=== PATIENT | male | born 1970 | race Caucasian/White ===

== ENCOUNTER 2020-01-19 12:22 | Outpatient (REF) | payer OTHER, SELFPAY ==
--- NOTE | 2020-01-19 12:44 | XR_ITS ---
EXAMINATION: XR PELVIS CLINICAL INFORMATION: Pain, assess for degenerative changes. COMPARISON: Lumbar radiographs 01/19/2020, CT abdomen and pelvis 07/21/2019 TECHNIQUE: AP view of the pelvis. FINDINGS: There is mild degenerative change may left SI joint with small anterior bridging osteophyte better appreciated on CT. There is no diastases or erosive changes SI joints. The pubis is unremarkable. Bony pelvis shows no fracture or destructive process. There is borderline narrowing left superior medial hip joint. No erosive changes or chondrocalcinosis bilateral hips. XR/XR pelvis 1-2V IMPRESSION: 1. Mild degenerative change mid left SI joint with small anterior bridging osteophyte. 2. Borderline narrowing left superior medial hip joint. No erosive change.
--- NOTE | 2020-01-19 12:44 | XR_ITS ---
EXAMINATION: XR LUMBOSACRAL SPINE CLINICAL INFORMATION: Low back pain COMPARISON: CT abdomen and pelvis 07/21/2019 TECHNIQUE: Three views of the lumbosacral spine. FINDINGS: There is normal lumbar segmentation with 5 nonrib-bearing lumbar vertebrae of normal height and normal lumbar lordosis. There is borderline spina bifida occulta S1. There is no vertebral compression, spondylolisthesis, destructive process. Minor vertebral spurring present at L2-L3. Borderline disc narrowing L4-L5. No erosive changes. There is mild degenerative change mid left SI joint with anterior bridging osteophyte better appreciated on CT. XR/XR lumbar spine 2-3V IMPRESSION: 1. Borderline disc narrowing L4-L5. Mild vertebral spurring L2-L3. 2. Mild degenerative change mid left SI joint.
[2020-01-19 13:30] LABS: MANUAL DIFF FLAG NO
[2020-01-19 13:34] LABS: Basophils Absolute Auto 0.1 X10*3/uL (0.0-0.2); Basophils Percent Auto 0.6 % (0-2); Eosinophils Absolute Auto 0.1 X10*3/uL (0.0-0.4); Eosinophils Percent Auto 1.2 % (0-4); Hematocrit 44.9 % (42-52); Hemoglobin 15.3 g/dl (14.0-18.0); Imm Gran Abs Auto 0.04 X10*3/uL (0.00-0.03); Imm Gran Pct Auto 0.4 % (0.0-0.4); Lymphocytes Absolute Auto 2.9 X10*3/uL (1.2-4.9); Lymphocytes Percent Auto 27.5 % (20-40); Mean Corpuscular HGB Conc 34.1 g/dl (31.0-36.0); Mean Corpuscular Hemoglobin 32.1 pg (27.0-33.0); Mean Corpuscular Volume 94.1 fL (80-98); Mean Platelet Volume 11.8 fL (9.4-12.4); Monocytes Absolute Auto 0.6 X10*3/uL (0.1-1.2); Monocytes Percent Auto 5.6 % (2-11); Neutrophils Absolute Auto 6.9 X10*3/uL (2.0-8.3); Neutrophils Percent Auto 64.7 % (45-73); Platelet Count 228 X10*3/uL (160-400); Red Blood Count 4.77 X10*6/uL (4.60-5.80); Red Cell Distribution Width 12.5 % (11.0-16.0); White Blood Count 10.6 X10*3/uL (4.8-10.8)
[2020-01-19 14:02] LABS: Alanine Aminotransferase 29 U/L (0-40); Albumin Level 4.6 g/dL (3.5-5.0); Alkaline Phosphatase 73 U/L (39-117); Anion Gap 12 (12-20); Aspartate Amino Transferase 28 U/L (5-37); Bilirubin Total 0.7 mg/dL (0.0-1.0); Blood Urea Nitrogen 17 mg/dL (9-16); Calcium 9.1 mg/dL (8.4-10.2); Carbon Dioxide 27 mmol/L (22-29); Chloride 107 mmol/L (96-108); Estimated Glomerular Filt Rate > 60; Glucose Random 80 mg/dL (60-115); Potassium 4.4 mmol/l (3.3-5.1); Sodium 142 mmol/L (135-145); Total Protein 6.9 g/dL (6.5-8.0)
== END 2020-01-19 12:23 | disposition home or self-care (01) ==
LOC: HO.LAB 12:22
PROVIDERS: PCP Internal Medicine; Visit Provider Internal Medicine
DX: M54.5 Low back pain (principal)
CPT/HCPCS: 36415; 72100; 72170; 80053; 85025; 86140

== ENCOUNTER 2020-01-25 16:45 | Outpatient (REF) | payer OTHER, SELFPAY ==
--- NOTE | 2020-01-25 | XR_ITS ---
EXAMINATION: PRE-MRI ORBITS. CLINICAL INFORMATION: History of radiopaque foreign body in orbits COMPARISON: None TECHNIQUE: 3 views. FINDINGS: There is no radiopaque foreign body seen in the orbits. XR/XR pre mri screening IMPRESSION: No radiopaque foreign body seen in the orbits.
--- NOTE | 2020-01-25 16:45 | MR_ITS ---
EXAMINATION: MR LUMBAR SPINE WITHOUT CONTRAST CLINICAL INFORMATION: Low back pain. COMPARISON: X-ray dated 01/19/2020 TECHNIQUE: MRI of the lumbar spine was obtained using routine sequences without contrast. FINDINGS: VERTEBRAL BODIES AND PARASPINAL STRUCTURES: The marrow signal is within normal limits. Small endplate Schmorl's nodes noted at various levels. There are no compression fractures. Minimal retrosubluxation evident at L4-L5. There are moderate degenerative changes of the left SI joint. Mild posterior paraspinal soft tissue edema noted on the right side at L4-L5. CONUS MEDULLARIS AND CAUDA EQUINA: Normal, terminating at the level of L1. No lower cord signal abnormality is seen. The cauda equina nerve roots are normal. SPINAL LEVELS: L1-L2: Well-hydrated normal appearance of the disc without central canal stenosis or foraminal narrowing. L2-L3: Mild disc bulge slightly impressing upon the ventral thecal sac. Otherwise, no central canal stenosis or foraminal narrowing. Small posterior annular fissure noted. L3-L4: Mild left posterolateral disc bulge with mild left foraminal encroachment. No nerve root impingement. No central canal stenosis. L4-L5: Mild degenerative endplate changes and generalized disc bulge present with mild facet arthropathy. No central canal stenosis. Bulging disc and facet spurring encroach upon the right subarticular zone with mild impression upon the right L5 nerve root. [id number] right foraminal narrowing. L5-S1: Mild posterior disc bulge and facet arthropathy without central canal stenosis. Mild foraminal narrowing. MR/MR lumbar spine wo con IMPRESSION: Mild lumbar spondylitic changes without central canal stenosis. Bulging disc and facet spurring at L4-L5 impress upon the right L5 nerve root in the subarticular zone. Mild right-sided posterior paraspinal soft tissue edema at this level, presumably stress-related in etiology.
== END 2020-01-25 16:46 | disposition home or self-care (01) ==
LOC: HO.MRI 16:45
PROVIDERS: Visit Provider Internal Medicine
DX: M51.36 Other intervertebral disc degeneration, lumbar region (principal); M25.78 Osteophyte, vertebrae
CPT/HCPCS: 72148

== ENCOUNTER 2020-07-25 08:48 | Outpatient (REF) | payer OTHER, SELFPAY ==
--- NOTE | ~2020-07-25 | FL_ITS ---
EXAMINATION: FL BARIUM SWALLOW CLINICAL INFORMATION: Dysphagia. COMPARISON: None. TECHNIQUE: Barium swallow examination is performed using fluoroscopic evaluation in addition to multiple fluoroscopic spot views. The patient is imaged both upright and prone and using both thick and thin sulfate along with effervescent granules. Fluoroscopy time: 2.1 minutes DAP: 17.49 Gycm2 Images: 31 FINDINGS: Following oral administration of thick barium and barium-coated turkey, there is normal propagation of bolus from the oral cavity through the pharynx and esophagus and into the stomach without obstruction, narrowing or stricture. On oral administration of thin barium and prone lying position, there is good distention of the entire esophagus without intraluminal defect or extrinsic compression. No gastroesophageal reflux or hiatal hernia seen. FL/FL barium swallow IMPRESSION: Widely patent esophagus with no obstructive etiology or intraluminal filling defect.
== END 2020-07-25 08:49 | disposition home or self-care (01) ==
LOC: HO.XRAY 08:48
PROVIDERS: PCP Internal Medicine; Visit Provider Otolaryngology
DX: R13.10 Dysphagia, unspecified (principal)
CPT/HCPCS: 74220

== ENCOUNTER 2021-01-25 09:32 | Outpatient (REF) | payer OTHER, SELFPAY ==
[2021-01-25 10:14] LABS: MANUAL DIFF FLAG NO
[2021-01-25 10:26] LABS: Basophils Absolute Auto 0.1 X10*3/uL (0.0-0.2); Basophils Percent Auto 0.8 % (0-2); Eosinophils Absolute Auto 0.2 X10*3/uL (0.0-0.4); Eosinophils Percent Auto 2.2 % (0-4); Hemoglobin 15.7 g/dl (14.0-18.0); Imm Gran Abs Auto 0.03 X10*3/uL (0.00-0.03); Imm Gran Pct Auto 0.4 % (0.0-0.4); Lymphocytes Percent Auto 27.6 % (20-40); Mean Corpuscular HGB Conc 34.9 g/dl (31.0-36.0); Mean Corpuscular Hemoglobin 31.9 pg (27.0-33.0); Mean Corpuscular Volume 91.5 fL (80.0-98.0); Mean Platelet Volume 12.5 fL (9.4-12.4); Monocytes Absolute Auto 0.5 X10*3/uL (0.1-1.2); Neutrophils Absolute Auto 4.5 x10*3/uL (2.0-8.3); Platelet Count 209 X10*3/uL (160-400); Red Blood Count 4.92 X10*6/uL (4.60-5.80); Red Cell Distribution Width 12.1 % (11.0-16.0); White Blood Count 7.3 X10*3/uL (4.8-10.8)
[2021-01-25 11:01] LABS: Alanine Aminotransferase 30 U/L (0-40); Albumin Level 4.3 g/dL (3.5-5.0); Alkaline Phosphatase 80 U/L (39-117); Anion Gap 11 (12-20); Aspartate Amino Transferase 22 U/L (5-37); Bilirubin Total 0.7 mg/dL (0.0-1.0); Blood Urea Nitrogen 14 mg/dL (9-16); C Reactive Protein 0.29 mg/dL (< or = 0.50); Calcium 9.1 mg/dL (8.4-10.2); Carbon Dioxide 26 mmol/L (22-29); Chloride 107 mmol/L (96-108); Cholesterol 169 mg/dL; Estimated Glomerular Filt Rate > 60; Glucose Fasting 185 mg/dL (60-99); HDL Cholesterol 27 mg/dL; LDL Cholesterol Calculated 66 mg/dl; Potassium 4.2 mmol/L (3.3-5.1); Sodium 140 mmol/L (135-145); Total Protein 6.7 g/dL (6.5-8.0); Triglycerides 383 mg/dL
[2021-01-25 11:17] LABS: Prostate Specific Antigen Scr 0.26 ng/mL (<0.05-4.0)
[2021-01-25 14:15] LABS: Appearance Urine CLEAR; Color Urine YELLOW; Glucose Urine UA 100 MG/DL (NEG); Leukocyte Esterase Urine NEG (NEG); Nitrite Urine NEG (NEG); PH 5.5 (5.0-8.0); Specific Gravity - Urine >= 1.030 (1.005-1.025); Urine Blood NEG (NEG); Urine Ketones NEG (NEG); Urine Protein NEG (NEG-TRACE)
== END 2021-01-25 09:33 | disposition home or self-care (01) ==
LOC: HO.10HDL 09:32
PROVIDERS: Visit Provider Internal Medicine
DX: Z00.00 Encounter for general adult medical examination without abnormal findings (principal); R10.9 Unspecified abdominal pain; Z12.5 Encounter for screening for malignant neoplasm of prostate
CPT/HCPCS: 36415; 80053; 80061; 81003; 84153; 85025; 86140

== ENCOUNTER 2021-01-25 09:53 | Outpatient (REF) | payer OTHER, SELFPAY ==
--- NOTE | ~2021-01-25 | US_ITS ---
EXAMINATION: US ABDOMEN COMPLETE CLINICAL INFORMATION: Right upper quadrant pain. Rule out gallbladder disease. COMPARISON: None. TECHNIQUE: Real-time imaging of the abdominal viscera. FINDINGS: PANCREAS: The head and the body the pancreas is homogeneous in echotexture. The tail of the pancreas is obscured by overlying gas. ABDOMINAL AORTA: The proximal, mid, and distal segments are normal in caliber. INFERIOR VENA CAVA: Visualized portions are normal. LIVER: The liver is increased in echogenicity. The liver is normal in size. The liver contour is normal. Parenchymal echogenicity is normal. No focal hepatic lesion. There is no intrahepatic biliary duct dilatation seen. GALLBLADDER: The gallbladder wall thickness is 0.14 cm. The gallbladder is physiologically distended without evidence of stones, sludge, polyps, wall thickening or pericholecystic fluid. COMMON BILE DUCT: Normal in caliber measuring 0.43. cm in diameter. RIGHT KIDNEY: Normal. No hydronephrosis. No renal calculi or focal parenchymal lesions. The kidney measures 11.3 cm in maximum dimension. LEFT KIDNEY: Normal. No hydronephrosis. No renal calculi or focal parenchymal lesions. The kidney measures 11.5 cm in maximum dimension. SPLEEN: Normal. The spleen measures 12.6 cm in maximum dimension. FREE FLUID: None. US/US abdomen complete IMPRESSION: Diffuse hepatic steatosis without focal lesion. The rest of the abdominal ultrasound is unremarkable.
== END 2021-01-25 09:54 | disposition home or self-care (01) ==
LOC: HO.US 09:53
PROVIDERS: PCP Internal Medicine; Visit Provider Internal Medicine
DX: R10.11 Right upper quadrant pain (principal); K76.0 Fatty (change of) liver, not elsewhere classified
CPT/HCPCS: 76700

== ENCOUNTER 2021-02-06 06:30 | Outpatient (REF) | payer OTHER, SELFPAY ==
--- NOTE | ~2021-02-06 | CT_ITS ---
EXAMINATION: CT ABDOMEN AND PELVIS WITHOUT CONTRAST CLINICAL INFORMATION: Abdominal pain COMPARISON: Previous CT of the abdomen and pelvis July 2019 and abdomen ultrasound 01/25/2021 TECHNIQUE: Multidetector volumetric imaging was performed from the superior aspect of the liver through the pubic symphysis. Sagittal and coronal reformatted images were obtained on the technologist's workstation. This CT examination was performed using dose optimization techniques as appropriate, variously including the following: *Automated exposure control *Adjustment of mA and/or kV according to patient size (this includes techniques or standardized protocols for targeted exams where dose is matched to indication/reason for exam; i.e. extremities or head) *Use of iterative reconstruction technique DLP: 497 mGy-cm FINDINGS: LUNG BASES: The visualized lung bases are unremarkable. LIVER, GALLBLADDER, AND BILIARY TREE: The liver is normal in size, shape, and attenuation. No focal hepatic lesion or biliary ductal dilatation is present. The gallbladder is unremarkable with no evidence of radiopaque gallstones, gallbladder wall thickening, or obvious pericholecystic inflammatory changes. PANCREAS: Unremarkable. SPLEEN: Unremarkable. ADRENAL GLANDS: Unremarkable. KIDNEYS AND URETERS: The kidneys are normal in size, shape, and attenuation. No hydronephrosis, hydroureter, or calculi seen. No perinephric stranding. BLADDER: Unremarkable. GASTROINTESTINAL TRACT: The small and large bowel are unremarkable. The appendix is unremarkable. ABDOMINAL WALL: No significant hernia is appreciated. LYMPH NODES: Normal. VASCULAR: Unremarkable. PELVIC VISCERA: Unremarkable. OSSEOUS STRUCTURES: Unremarkable. CT/CT abdomen pelvis wo con IMPRESSION: Unremarkable exam. Fleischner guidelines were followed.
[2021-02-06] MEDS: Barium Sulfate Oral (Mocha) 450 ML ORAL.SUSP 900 ML PO (09:26)
== END 2021-02-06 06:31 | disposition home or self-care (01) ==
LOC: HO.CT 06:30
PROVIDERS: Visit Provider Internal Medicine
DX: R10.84 Generalized abdominal pain (principal)
CPT/HCPCS: 74176

== ENCOUNTER 2021-02-09 10:04 | Outpatient (REF) | payer OTHER, SELFPAY ==
[2021-02-09 14:26] LABS: Estimated Average Glucose 163 mg/dL; Hemoglobin A1c % 7.3 %
[2021-02-09 14:43] LABS: Anion Gap 12 (12-20); Blood Urea Nitrogen 19 mg/dL (9-16); Calcium 9.8 mg/dL (8.4-10.2); Carbon Dioxide 25 mmol/L (22-29); Chloride 107 mmol/L (96-108); Estimated Glomerular Filt Rate > 60; Glucose Fasting 108 mg/dL (60-99); Potassium 4.3 mmol/L (3.3-5.1); Sodium 140 mmol/L (135-145)
== END 2021-02-09 10:05 | disposition home or self-care (01) ==
LOC: HO.10HDL 10:04
PROVIDERS: Visit Provider Internal Medicine
DX: R73.9 Hyperglycemia, unspecified (principal)
CPT/HCPCS: 36415; 80048; 83036

== ENCOUNTER → 2021-03-08 12:52 | Outpatient (BNVA) | payer OTHER, SELFPAY | PROVIDERS: PCP Internal Medicine; Referring Provider Internal Medicine; Visit Provider Surgery ==

== ENCOUNTER 2021-04-28 07:34 | Day surgery (SDC) | payer OTHER, SELFPAY ==
[2021-04-19 11:55] VITALS: BMI 29.2
[2021-04-19 12:10] VITALS: BMI 29.2
--- NOTE | 2021-04-27 08:17 | HO.ANESPROP2 ---
HPI - Anesthesia Eval Consult details Narrative: 50yo M for Colonoscopy, Poss Polypectomy PMFSH Active Problems Active Problems: All Active Problems (Updated 04/19/21 @ 12:13 by Melissa Eagle, RN) Colon cancer screening (Acute) Chronic abdominal pain (Acute) Medical history non-contributory (Acute) Past Medical History Medical History (Updated 04/19/21 @ 12:13 by Melissa Eagle, RN) Chronic abdominal pain Colon cancer screening COVID-19 vaccine series completed Medical history non-contributory Family History Family History Family/Other Cancer Paternal Uncle Bone cancer Surgical History Surgical History No pertinent past surgical history Social History Social History Are you a primary personal care assistant to a significant other at home: No Do you presently have visiting nurse or other home services: No Patient Tobacco Use Status: Never used Tobacco Meds Allergies Allergy/AdvReac Type Severity Reaction Status Date / Time No Known Allergies Allergy Verified 04/28/21 07:41 Exam Exam Date and Time: April 27, 2021 0817 Height,Weight and Vital Signs: Height 5 ft 8 in Weight 87.09 kg Assessment and Plan Assessment Anesthesia Assessment: Chart Reviewed
[2021-04-28 08:05] VITALS: BP 105/65; PULSE 53; RESP 16; TEMP 36.7; O2SAT 97
[2021-04-28] MEDS: Lactated Ringers 1,000 ML 100 ML IVCONT (08:17)
--- NOTE | 2021-04-28 08:44 | MHC.SHP ---
Pre-Procedural Eval Section A Date of Service: 04/28/21 Section B Chief Complaint: Screening Details of Present Illness: has chronic vague abdl pain, also has never had colonoscopy in the past Relevant Family History (Specify if Yes): No Relevant Social History: None Present Medications: None Medical History: No relevant PMH History of Previous Operations: No relevant previous surgery Allergies: Allergies Allergy/AdvReac Type Severity Reaction Status Date / Time No Known Allergies Allergy Verified 04/28/21 07:41 Review of Systems Sugical H&P ROS: Negative: Constitution, Cardiovascular, Respiratory, Neurological, Psychiatric, Hem-Onc, Allergic/Immunologic, Gastrointestinal, Genitourinary, Musculoskeletal, Integumentary, Endocrine and Eyes/Ears/Nose/Throat Exam Surgical H&P Exam: Normal: HEENT, Normal: Heart, Normal: Lungs, Normal: Extremities, Normal: Abdomen, Normal: Skin and Normal: Neurological Plan Diagnosis/Plan: Unchanged I have reviewed the history and physical and performed a pertinent physical examination on my patient. No changes have occurred unless specified.
--- NOTE | 2021-04-28 09:10 | W.PM.OPN ---
Operative Note Operative Note Date of Service: 04/28/21 Narrative: Preop diagnosis: Chronic abdominal pain Postop diagnosis: Normal colonoscopy findings Procedure: Colonoscopy Surgeon: Xavier Goznales Patient is a 50-year-old male who has had some chronic vague abdominal pains. He had a CAT scan which was unremarkable. In view of his age, I had recommended colonoscopy as well for his 1st colon cancer screening. he understood the technique of the procedure. He was aware of the risks, benefits, and alternatives He was brought to the operating room. He was placed in left lateral decubitus position. A surgical time-out was done. A full digital rectal exam was done and there were no palpable anal lesions or induration. The Olympus colonoscope was gently introduced through the anal orifice and advanced with insufflation all the way to the cecum. The cecum was intubated. The cecum was identified via visualization of the ileocecal valve as well as the appendiceal orifice. The cecal mucosa was unremarkable. The scope was gradually withdrawn with careful examination of the entire colonic mucosa being done with scope withdrawal. The patient had good bowel prep so it was unlikely that any lesion may have been missed. The rectum was reached. There were no lesions seen. The anal canal and the anal shelf were unremarkable. The scope was then withdrawn completely with desufflation. The patient tolerated procedure well. There were no complications noted. Withdrawal time was about 6 minutes He he falls at average risk for colon cancer so his next colonoscopy may be in the next 10 years.
[2021-04-28 09:15] VITALS: BP 104/61; PULSE 60; RESP 20; TEMP 36.6; O2SAT 98
[2021-04-28 09:30] VITALS: BP 104/65; PULSE 51; RESP 18; TEMP 36.6; O2SAT 97
== END 2021-04-28 10:31 | disposition home or self-care (01) ==
PROVIDERS: PCP Internal Medicine; Visit Provider Surgery
PROC: 0DJD8ZZ Inspection of Lower Intestinal Tract, Via Natural or Artificial Opening Endoscopic (ICD-10-PCS; CPT 45378; principal; 2021-04-28 08:30)
DX: Z12.11 Encounter for screening for malignant neoplasm of colon (principal); G89.29 Other chronic pain; R10.11 Right upper quadrant pain
CPT/HCPCS: 45378

== ENCOUNTER 2021-05-01 08:08 | Outpatient (REF) | payer OTHER, SELFPAY ==
[2021-05-01 10:26] LABS: Anion Gap 12 (12-20); Blood Urea Nitrogen 16 mg/dL (9-16); Calcium 9.8 mg/dL (8.4-10.2); Carbon Dioxide 27 mmol/L (22-29); Chloride 105 mmol/L (96-108); Cholesterol 181 mg/dL; Estimated Glomerular Filt Rate > 60; Glucose Fasting 111 mg/dL (60-99); HDL Cholesterol 40 mg/dL; LDL Cholesterol Calculated 111 mg/dl; Potassium 4.2 mmol/L (3.3-5.1); Sodium 140 mmol/L (135-145); Triglycerides 152 mg/dL
[2021-05-01 11:11] LABS: Estimated Average Glucose 120 mg/dL; Hemoglobin A1c % 5.8 %
== END 2021-05-01 08:09 | disposition home or self-care (01) ==
LOC: HO.10HDL 08:08
PROVIDERS: Visit Provider Internal Medicine
DX: E78.00 Pure hypercholesterolemia, unspecified (principal); E11.9 Type 2 diabetes mellitus without complications
CPT/HCPCS: 36415; 80048; 80061; 83036

== ENCOUNTER 2021-12-01 10:43 | Outpatient (REF) | payer OTHER, SELFPAY ==
--- NOTE | ~2021-12-01 | XR_ITS ---
EXAMINATION: XR HIP, RIGHT CLINICAL INFORMATION: Pain. COMPARISON: Radiographs dated 01/19/2020. TECHNIQUE: AP and frog-leg lateral views of the right hip. FINDINGS: Bones and soft tissues are normal. No fracture. Alignment is anatomic. Hip joint space is maintained. XR/XR hip RT min 2V IMPRESSION: Normal right hip.
== END 2021-12-01 10:44 | disposition home or self-care (01) ==
LOC: HO.XRAY 10:43
PROVIDERS: PCP Internal Medicine; Visit Provider Internal Medicine
DX: M25.551 Pain in right hip (principal)
CPT/HCPCS: 73502

== ENCOUNTER 2023-11-19 11:48 | Outpatient (REF) | payer OTHER, SELFPAY ==
[2023-11-19 13:16] LABS: MANUAL DIFF FLAG NO
[2023-11-19 13:19] LABS: Basophils Absolute Auto 0.1 X10*3/uL (0.0-0.2); Basophils Percent Auto 0.8 % (0-2); Eosinophils Absolute Auto 0.2 X10*3/uL (0.0-0.4); Eosinophils Percent Auto 2.2 % (0-4); Hemoglobin 16.5 g/dl (14.0-18.0); Imm Gran Abs Auto 0.03 X10*3/uL (0.00-0.03); Imm Gran Pct Auto 0.3 % (0.0-0.4); Lymphocytes Absolute Auto 2.7 X10*3/uL (1.2-4.9); Lymphocytes Percent Auto 31.5 % (20-40); Mean Corpuscular HGB Conc 35.9 g/dl (31.0-36.0); Mean Corpuscular Hemoglobin 31.9 pg (27.0-33.0); Mean Corpuscular Volume 88.8 fL (80.0-98.0); Mean Platelet Volume 11.6 fL (9.4-12.4); Monocytes Absolute Auto 0.5 X10*3/uL (0.1-1.2); Neutrophils Absolute Auto 5.1 x10*3/uL (2.0-8.3); Neutrophils Percent Auto 59.2 % (45-73); Platelet Count 228 X10*3/uL (160-400); Red Blood Count 5.18 X10*6/uL (4.60-5.80); Red Cell Distribution Width 12.5 % (11.0-16.0); White Blood Count 8.7 X10*3/uL (4.8-10.8)
[2023-11-19 13:38] LABS: Alanine Aminotransferase 19 U/L (0-40); Albumin Level 4.3 g/dL (3.5-5.0); Alkaline Phosphatase 106 U/L (39-117); Anion Gap 10 (12-20); Aspartate Amino Transferase 16 U/L (5-37); Bilirubin Total 1.1 mg/dL (0.0-1.0); Blood Urea Nitrogen 11 mg/dL (9-16); Calcium 9.9 mg/dL (8.4-10.2); Carbon Dioxide 30 mmol/L (22-29); Chloride 102 mmol/L (96-108); Cholesterol 177 mg/dL (<200); Estimated Glomerular Filt Rate > 60; Glucose Fasting 331 mg/dL (60-99); HDL Cholesterol 37 mg/dL (>40); LDL Cholesterol Calculated 98 mg/dL (<100); Sodium 138 mmol/L (135-145); Total Protein 6.8 g/dL (6.5-8.0); Triglycerides 213 mg/dL (<150)
[2023-11-19 13:58] LABS: Prostate Specific Antigen Scr 0.27 ng/mL (<0.05-4.0)
== END 2023-11-19 11:49 | disposition home or self-care (01) ==
LOC: HO.10HDL 11:48
PROVIDERS: Visit Provider Internal Medicine
DX: Z12.5 Encounter for screening for malignant neoplasm of prostate (principal); R73.03 Prediabetes; N40.0 Benign prostatic hyperplasia without lower urinary tract symptoms; E78.5 Hyperlipidemia, unspecified
CPT/HCPCS: 36415; 80053; 80061; 84153; 85025

== ENCOUNTER 2023-11-25 14:33 | Outpatient (REF) | payer OTHER, SELFPAY ==
[2023-11-25 16:17] LABS: Estimated Average Glucose 315 mg/dL; Hemoglobin A1c % 12.6 % (<6.0); Total Hemoglobin (HGBA1C) 3948.7998 umol/L
[2023-11-25 16:38] LABS: Anion Gap 12 (12-20); Blood Urea Nitrogen 11 mg/dL (9-16); Calcium 9.4 mg/dL (8.4-10.2); Carbon Dioxide 27 mmol/L (22-29); Chloride 100 mmol/L (96-108); Estimated Glomerular Filt Rate > 60; Glucose Random 443 mg/dL (60-115); Potassium 3.5 mmol/L (3.3-5.1); Sodium 135 mmol/L (135-145)
== END 2023-11-25 14:34 | disposition home or self-care (01) ==
LOC: HO.LAB 14:33
PROVIDERS: PCP Internal Medicine; Visit Provider Internal Medicine
DX: E11.9 Type 2 diabetes mellitus without complications (principal)
CPT/HCPCS: 36415; 80048; 83036